=== PATIENT | female | born 1975 | race Caucasian/White ===

== ENCOUNTER 2016-11-22 00:51 | Emergency (ER) | payer OTHER ==
[~2016-11-22] VITALS: Ht 172.7 cm; Wt 104.3 kg
[~2016-11-22 00:51] MED LIST: AMOX500C PO; HYDR-971 PO; HYDR25CA PO; SULF1TAB24 PO
[2016-11-22 01:16] VITALS: BP 160/80
[2016-11-22] MEDS ORDERED: IBUP-1007 PO (01:43)
[2016-11-22] MEDS ORDERED: BACI28.43 TP (01:43)
--- NOTE | 2016-11-22 01:44 | PHYS DOC ---
Past Medical History Past Medical History: Arrhythmia Additional Past Medical Histor: pvc, bradycardia Past Surgical History: Appendectomy, Tonsillectomy, Other Additional Past Surgical Histo: ovarian cyst removal Alcohol Use: None Drug Use: None Adult General Chief Complaint Chief Complaint: ANIMAL BITE HPI HPI Patient is a 40 year old female who presents with complaint of pain to the right breast. Patient states that she suffered an accidental dog bite from one of her own dogs 2 weeks ago which caused an avulsion injury over the right breast. The patient has been applying dressings and antibiotic ointment to the affected area ever since. The patient was concerned because she has been experiencing more pain to this area. Patient denies any fever. Patient has had yellow clear drainage from the wound site. Patient states that her dog is up-to- date on all immunizations and that the patient is also up-to-date on tetanus. Due to concern for possible infection the patient came to the emergency department for evaluation. Review of Systems Review of Systems Constitutional: Denies fever or chills [] Eyes: Denies change in visual acuity, redness, or eye pain [] HENT: Denies nasal congestion or sore throat [] Respiratory: Denies cough or shortness of breath [] Cardiovascular: Denies chest pain or edema [] GI: Denies abdominal pain, nausea, vomiting, bloody stools or diarrhea [] : Denies dysuria or hematuria [] Musculoskeletal: Denies back pain or joint pain [] Integument: Right breast wound, pain to right breast [] Neurologic: Denies headache, focal weakness or sensory changes [] Allergies Allergies Allergies Coded Allergies Type Severity Reaction Last Updated Verified No Known Drug Allergies 12/11/13 No Physical Exam Physical Exam Constitutional: Alert, afebrile, appears in minimal discomfort. [] HENT: Normocephalic, atraumatic, bilateral external ears normal, oropharynx moist, no oral exudates, nose normal. [] Neck: Normal range of motion, no tenderness, supple, no stridor. [] Cardiovascular:Heart rate regular rhythm, no murmur [] Lungs & Thorax: Bilateral breath sounds clear to auscultation [] Abdomen: Bowel sounds normal, soft, no tenderness, no masses, no pulsatile masses. [] Skin: Warm, dry, 3 cm x 4 cm subacute avulsion to anterior right breast with no surrounding erythema or induration, no purulent drainage, granulation tissue present in wound bed. [] Back: No tenderness, no CVA tenderness. [] Extremities: No tenderness, no cyanosis, no clubbing, ROM intact, no edema. [] Neurologic: Alert and oriented X 3, normal motor function, normal sensory function, no focal deficits noted. [] Current Patient Data Vital Signs Vital Signs Date Time Temp Pulse Resp B/P Pulse Ox O2 Delivery O2 Flow Rate FiO2 11/22/16 01:16 98.9 103 16 160/80 99 Room Air 98.9 EKG EKG Not performed [] Radiology/Procedures Radiology/Procedures Not performed [] Course & Med Decision Making Course & Med Decision Making Pertinent Labs and Imaging studies reviewed. (See chart for details) The patient's wound appears to be healing well. There are mild inflammatory changes present but no signs of active infection at this time. Advised to continue on bacitracin ointment and routine wound care. Advised follow-up with primary doctor in the next 1-2 weeks and return to emergency department for any worsening symptoms. Patient voiced understanding and in agreement with treatment plan. Dragon Disclaimer Dragon Disclaimer This electronic medical record was generated, in whole or in part, using a voice recognition dictation system. Departure Departure Impression: Primary Impression: Animal bite Disposition: HOME, SELF-CARE Condition: GOOD Referrals: BLAIR CRAVEN MD (PCP) Patient Instructions: Wound Care, [id number] Additional Instructions: Follow-up with your primary doctor in 1-2 weeks. Return to the emergency department for any worsening symptoms. Scripts Ibuprofen 600 Mg [id number] Mg PO Q6HRS PRN INFLAMMATION #30 TAB Prov:LILLIANA VALLE MD 11/22/16 Bacitracin 30 Gm Oint...g.1 Desiree TP BID #30 GM Prov:LILLIANA VALLE MD 11/22/16 LILLIANA VALLE MD Nov 22, 2016 01:43
== END 2016-11-22 02:01 | disposition home or self-care (01) ==
LOC: ER 00:51
DX: S21.051A Open bite of right breast, initial encounter (principal); W54.0XXA Bitten by dog, initial encounter; Y93.89 Activity, other specified; Y92.89 Other specified places as the place of occurrence of the external cause; Y99.8 Other external cause status
CPT/HCPCS: 99283

== ENCOUNTER 2016-12-28 14:23 | Emergency (ER) | payer OTHER ==
[~2016-12-28] VITALS: Ht 170.2 cm; Wt 108.0 kg
[~2016-12-28 14:23] MED LIST changes: +BACI28.43 TP; +IBUP-1007 PO
[2016-12-28] MEDS ORDERED: KETOROLAC 15 MG/ML VIAL. IV ONE (16:00)
[2016-12-28] MEDS ORDERED: IV NORMAL SALINE 1000ML BAG 1,000 ML IV ONE (16:00)
--- NOTE | 2016-12-28 16:01 | ED.ADGEN ---
Past Medical History Past Medical History: Arrhythmia, Other Additional Past Medical Histor: pvc, bradycardia,Degenerative Disk Disorder, Broken tailbone Past Surgical History: Appendectomy, Tonsillectomy, Other Additional Past Surgical Histo: ovarian cyst removal&cyst removed from uterus. Additional Information: 2-3 packs a week. Alcohol Use: None Drug Use: None, Other Social History Narrative: "Gummy bear from [place] for my birthday.I get one every year." Adult General Chief Complaint Chief Complaint: OTHER COMPLAINTS HPI HPI Patient is a 41 year old woman, history of PVCs, bradycardia, degenerative disc disease, who presents emergency department with multiple complaints. Patient states over the past several weeks she's been experiencing episodes of back pain where she states "it feels like my spine is being ripped out". Patient states that this seems to be triggered by changes in the weather and by stress. She states that she's also had episodes of near-syncope and syncope, states that she will become lightheaded and fall down, although she states it may also be triggered by stress. She complains of some occasional numbness and tingling in her feet, denies any weakness, any headache, any nausea or vomiting , any palpitations, chest pain, shortness of breath. Patient states that she had an appointment to see her primary care provider about this intermittent pain and other symptoms, however she did cancel the appointment. She states that she has been using ibuprofen without relief, her last dose of ibuprofen was on Wednesday. Patient states the pain did return today, she came to the ED for evaluation. She states that "there is a lot going on right now and I am under a lot of stress". She denies any suicidal or homicidal ideations, any auditory or visual hallucinations, any drugs, alcohol or cigarettes. Denies any recent injuries, she has a history of a "tailbone" injury 3 years ago which she states still causes her pain, and denies any recent travel, history of DVT, PE, in herself, her grandmother had a DVT and advanced age, no history of sudden cardiac in family members. Review of Systems Review of Systems Constitutional: Denies fever or chills. [] Eyes: Denies change in visual acuity. [] HENT: Denies nasal congestion or sore throat. [] Respiratory: Denies cough or shortness of breath. [] Cardiovascular: Denies chest pain or edema. [] GI: Denies abdominal pain, nausea, vomiting, bloody stools or diarrhea. [] : Denies dysuria. [] Musculoskeletal: Lower back pain. Integument: Denies rash. [] Neurologic: Denies headache, focal weakness or sensory changes. [] Dizziness and syncope. Endocrine: Denies polyuria or polydipsia. [] Lymphatic: Denies swollen glands. [] Psychiatric: Denies depression or anxiety. [] Current Medications Current Medications Current Medications Medications (Trade) Dose Ordered Sig/Carine Start Time Stop Time Status Last Admin Dose Admin Ketorolac Tromethamine (Toradol) 10 mg 1X ONCE 12/28/16 16:00 12/28/16 16:01 DC 12/28/16 17:31 10 MG Sodium Chloride (Iv Sodium Chloride 0.9% 1000ml Bag) 1,000 ml @ 1,000 mls/hr 1X ONCE 12/28/16 16:00 12/28/16 16:59 DC 12/28/16 17:29 1,000 MLS/HR Allergies Allergies Allergies Coded Allergies Type Severity Reaction Last Updated Verified No Known Drug Allergies 12/11/13 No Physical Exam Physical Exam Constitutional: Well developed, well nourished, no acute distress, non-toxic appearance. [] HENT: Normocephalic, atraumatic, bilateral external ears normal, oropharynx moist, no oral exudates, nose normal. [] Eyes: PERRLA, EOMI, conjunctiva normal, no discharge. [] Neck: Normal range of motion, no tenderness, supple, no stridor. [] Cardiovascular:Heart rate regular rhythm, no murmur, S1, S2, rubs or gallops. [] Lungs & Thorax: Bilateral breath sounds clear to auscultation, no wheezing, rhonchi, rales. No chest wall crepitus or tenderness. [] Abdomen: Bowel sounds normal, soft, no tenderness, no rebound, rigidity, no guarding, no masses, no pulsatile masses. [] Skin: Warm, dry, no erythema, no rash. [] Back: No step-offs or deformities, patient complained of tenderness with some tissue tension in the paraspinal muscles in the bilateral lumbar region, no CVA tenderness. [] Extremities: No tenderness, no cyanosis, no clubbing, ROM intact, no edema. [] Neurologic: Alert and oriented X 3, normal motor function, normal sensory function, no focal deficits noted. [] Psychologic: Affect normal, judgement normal, mood normal. [] Current Patient Data Vital Signs Vital Signs Date Time Temp Pulse Resp B/P Pulse Ox O2 Delivery O2 Flow Rate FiO2 12/28/16 14:25 98.5 90 14 134/83 96 Room Air 98.5 Lab Values Laboratory Tests Test 12/28/16 15:00 12/28/16 16:35 Urine Color Yellow Urine Clarity Clear Urine pH 7.5 Urine Specific Confluence <=1.005 Urine Protein Negativemg/dL (NEG-TRACE) Urine Glucose (UA) Negativemg/dL (NEG) Urine Ketones (Stick) Negativemg/dL (NEG) Urine Blood Negative (NEG) Urine Nitrite Negative (NEG) Urine Bilirubin Negative (NEG) Urine Urobilinogen Dipstick 0.2mg/dL (0.2 mg/dL) Urine Leukocyte Esterase Negative (NEG) Urine RBC 0/HPF (0-2) Urine WBC Occ/HPF (0-4) Urine Squamous Epithelial Cells Occ/LPF Urine Bacteria Few/HPF (0-FEW) Urine Opiates Screen Neg (NEG) Urine Methadone Screen Neg (NEG) Urine Barbiturates Neg (NEG) Urine Phencyclidine Screen Neg (NEG) Urine Amphetamine/Methamphetamine Neg (NEG) Urine Benzodiazepines Screen Pos (NEG) Urine Cocaine Screen Neg (NEG) Urine Cannabinoids Screen Neg (NEG) Urine Ethyl Alcohol Neg (NEG) White Blood Count 9.6x10^3/uL (4.0-11.0) Red Blood Count 4.58x10^6/uL (3.50-5.40) Hemoglobin 13.8g/dL (12.0-15.5) Hematocrit 41.7% (36.0-47.0) Mean Corpuscular Volume 91fL (79-100) Mean Corpuscular Hemoglobin 30pg (25-35) Mean Corpuscular Hemoglobin Concent 33g/dL (31-37) Red Cell Distribution Width 15.8% (11.5-14.5) H Platelet Count 189x10^3/uL (140-400) Neutrophils (%) (Auto) 59% (31-73) Lymphocytes (%) (Auto) 31% (24-48) Monocytes (%) (Auto) 8% (0-9) Eosinophils (%) (Auto) 1% (0-3) Basophils (%) (Auto) 1% (0-3) Neutrophils # (Auto) 5.7x10^3uL (1.8-7.7) Lymphocytes # (Auto) 3.0x10^3/uL (1.0-4.8) Monocytes # (Auto) 0.7x10^3/uL (0.0-1.1) Eosinophils # (Auto) 0.1x10^3/uL (0.0-0.7) Basophils # (Auto) 0.1x10^3/uL (0.0-0.2) Sodium Level 137mmol/L (136-145) Potassium Level 3.9mmol/L (3.5-5.1) Chloride Level 102mmol/L (98-107) Carbon Dioxide Level 28mmol/L (21-32) Anion Gap 7 (6-14) Blood Urea Nitrogen 12mg/dL (7-20) Creatinine 0.7mg/dL (0.6-1.0) Estimated GFR (Cockcroft-Gault) 93.2 BUN/Creatinine Ratio 17 (6-20) Glucose Level 91mg/dL (70-99) Calcium Level 10.2mg/dL (8.5-10.1) H Total Bilirubin 0.3mg/dL (0.2-1.0) Aspartate Amino Transferase (AST) 20U/L (15-37) Alanine Aminotransferase (ALT) 35U/L (14-59) Alkaline Phosphatase 63U/L (46-116) Troponin I Quantitative < 0.017ng/mL (0.000-0.055) MV-Cpk-Q-Type Natriuretic Peptide 11pg/mL (0-124) Total Protein 8.1g/dL (6.4-8.2) Albumin 3.8g/dL (3.4-5.0) Albumin/Globulin Ratio 0.9 (1.0-1.7) L Laboratory Tests 12/28/16 16:35 Laboratory Tests 12/28/16 16:35 EKG EKG EC: Sinus rhythm, heart rate 2 beats minute, upright axis, QTC of 433, SC 120, QRS 100, mild baseline artifact, no ST elevations or depressions, no evidence of acute ST abnormalities. Radiology/Procedures Radiology/Procedures [] [facility] [address] [place] [address] IMAGING REPORT Signed PATIENT: JULIA PITT ACCOUNT: [id number] : 1975 LOCATION: ER AGE: 41 SEX: F EXAM STATUS: REG ER ORD. PHYSICIAN: MARIO SLAUGHTER DO REASON: dizziness PROCEDURE: PORTABLE CHEST 1V Indication dizziness. Fall. Suspect CVA. Protocol study. A single view of the chest was obtained. Comparison is made to an examination 07/24/2016. The heart, pulmonary vessels and mediastinum appear unremarkable. A focal infiltrate is not seen. Significant pleural fluid is not present and there is no pneumothorax. There has not been a significant change when compared to the previous exam. IMPRESSION: No acute or focal process. No significant change DICTATED and SIGNED BY: ZEESHAN BERNAL MD DATE: 12/28/16 1620 CC: BLAIR SCHMIDT MD; MARIO SLAUGHTER DO ~ Impressions: [facility] [address] [place] [address] IMAGING REPORT Signed PATIENT: JULIA PITT ACCOUNT: [id number] : 1975 LOCATION: ER AGE: 41 SEX: F EXAM STATUS: REG ER ORD. PHYSICIAN: MARIO SLAUGHTER DO REASON: LOWER BACK PAIN PROCEDURE: LUMBAR SPINE 2-3V Indication recent falls. Back pain. AP and lateral views of the lumbar spine were obtained as well as a coned view targeted to the lumbosacral junction. There are some minimal degenerative changes involving the facet joints at L4-5 and L5-S1. No acute bony finding is seen. Advanced degenerative changes are not seen IMPRESSION: No acute bony finding. DICTATED and SIGNED BY: ZEESHAN BERNAL MD DATE: 12/28/16 1421 CC: BLAIR SCHMIDT MD; MARIO SLAUGHTER DO ~ Course & Med Decision Making Course & Med Decision Making Pertinent Labs and Imaging studies reviewed. (See chart for details) Patient is complaining of low back pain currently in the emergency department, denies any urinary complaints as stated, has a normal neurologic examination, no cardiac or pulmonary risk factors or complaints, is ambulating without difficulty in the ED. She states that she is very "stressed out", agreeable to receiving laboratory studies and evaluation for her symptoms in the ED today, although we discussed the follow-up with her primary care provider as the symptoms have been ongoing is appropriate. Patient's laboratory studies and imaging not reveal any evidence of acutely concerning findings, she did receive Toradol for pain in the emergency department, was ambulating without difficulty , orthostatics are within normal limits. Discussed the possible role of stress as exerting factor for the patient's symptoms with patient. I did discuss findings as above with Dr. Schmidt, the patient's primary care provider, states she has not seen the patient in the office some time. She states that due to reports from other emergency department is that she does have concerns for possible "drug-seeking behavior". Department if the patient follow-up in the office with her for additional evaluation. Findings as above discussed with patient, plan for follow-up, discussed along with precautions, return instructions, patient was given Flexeril, naproxen, for treatment of musculoskeletal back pain, discharged home in stable condition with plan as above. Dragzulma Disclaimer Dragon Disclaimer This electronic medical record was generated, in whole or in part, using a voice recognition dictation system. Departure Impression: Primary Impression: Back pain Additional Impressions: Dizziness Syncope Disposition: HOME, SELF-CARE Condition: IMPROVED Scripts Naproxen 250 Mg [id number] Mg PO BID PRN PAIN #10 Prov:MARIO SLAUGHTER DO 12/28/16 Cyclobenzaprine Hcl 10 Mg [id number] Mg PO TID PRN PAIN #10 TAB Prov:MARIO SLAUGHTER DO 12/28/16 Problem Qualifiers MARIO SLAUGHTER DO December 28, 2016 16:01
--- NOTE | 2016-12-28 16:26 | RAD ---
Indication recent falls. Back pain. AP and lateral views of the lumbar spine were obtained as well as a coned view targeted to the lumbosacral junction. There are some minimal degenerative changes involving the facet joints at L4-5 and L5-S1. No acute bony finding is seen. Advanced degenerative changes are not seen IMPRESSION: No acute bony finding.
--- NOTE | 2016-12-28 16:28 | RAD ---
Indication dizziness. Fall. Suspect CVA. Protocol study. A single view of the chest was obtained. Comparison is made to an examination 07/24/2016. The heart, pulmonary vessels and mediastinum appear unremarkable. A focal infiltrate is not seen. Significant pleural fluid is not present and there is no pneumothorax. There has not been a significant change when compared to the previous exam. IMPRESSION: No acute or focal process. No significant change
[2016-12-28 16:40] LABS: BILIRUBIN,URINE NEGATIVE (NEG); GLUCOSE,URINE NEGATIVE (NEG); NITRITE,URINE NEGATIVE (NEG); PH,URINE 7.5; PROTEIN,URINE NEGATIVE (NEG-TRACE); UROBILINOGEN,URINE 0.2 mg/dL (0.2 mg/dL)
[2016-12-28 16:46] LABS: BARBITURATES NEG (NEG); BENZODIAZEPINES POS (NEG); CANNABINOIDS NEG (NEG); COCAINE NEG (NEG); METHADONE NEG (NEG); OPIATES NEG (NEG); PHENCYCLIDINE NEG (NEG)
[2016-12-28 16:47] LABS: BASO # 0.1 x10^3/uL (0.0-0.2); BASO % 1 % (0-3); EOS % 1 % (0-3); HEMATOCRIT 41.7 % (36.0-47.0); HEMOGLOBIN 13.8 g/dL (12.0-15.5); LYMPH % 31 % (24-48); MEAN CORPUSCULAR HEMOGLOBIN 30 pg (25-35); MEAN CORPUSCULAR HGB CONC 33 g/dL (31-37); MEAN CORPUSCULAR VOLUME 91 fL (79-100); MONO % 8 % (0-9); NEUT % 59 % (31-73); PLATELET COUNT 189 x10^3/uL (140-400); RED BLOOD COUNT 4.58 x10^6/uL (3.50-5.40); RED CELL DISTRIBUTION WIDTH 15.8 % (11.5-14.5); WHITE BLOOD COUNT 9.6 x10^3/uL (4.0-11.0)
[2016-12-28 17:03] LABS: CALCIUM 10.2 mg/dL (8.5-10.1); CREATININE 0.7 mg/dL (0.6-1.0); GFR 93.2; POTASSIUM 3.9 mmol/L (3.5-5.1)
[2016-12-28 17:06] LABS: BACTERIA,URINE FEW /HPF (0-FEW); RBC,URINE 0 /HPF (0-2); SQUAMOUS EPITHELIAL CELL,UR OCC /LPF; WBC,URINE OCC /HPF (0-4)
[2016-12-28 17:08] LABS: ALBUMIN 3.8 g/dL (3.4-5.0); ALBUMIN/GLOBULIN RATIO 0.9 (1.0-1.7); TOTAL BILIRUBIN 0.3 mg/dL (0.2-1.0); TOTAL PROTEIN 8.1 g/dL (6.4-8.2)
[2016-12-28] MEDS ORDERED: NAPR250T2 PO (18:21)
[2016-12-28] MEDS ORDERED: CYCL10TA2 PO (18:21)
[2016-12-28 19:08] VITALS: BP 116/63
--- NOTE | 2016-12-29 06:02 | EKG ---
[facility] [address] [place] [address] Test Date: 2016-12-28 Test Time: 16:42:56 Pat Name: JULIA PITT Department: Room: Gender: F Post Manager: : 1975 Requested By: MARIO SLAUGHTER Order Number: [id number] Reading MD: Irasema Mcwilliams Measurements Intervals [place] Rate: 82 P: 25 IL: 128 QRS: 67 QRSD: 100 T: 19 QT: 368 QTc: 433 Interpretive Statements SINUS RHYTHM NORMAL ECG RI6.01 Unconfirmed report Compared to ECG 12/11/2013 16:24:22 Prolonged QT interval no longer present Electronically Signed On 12-29-2016 12:11:58 CDT by Irasema Mcwilliams
== END 2016-12-28 19:08 | disposition home or self-care (01) ==
LOC: ER 14:23
DX: R55 Syncope and collapse (principal); R42 Dizziness and giddiness; M54.5 Low back pain; R20.0 Anesthesia of skin; I49.3 Ventricular premature depolarization; F17.200 Nicotine dependence, unspecified, uncomplicated
CPT/HCPCS: 36415; 71010; 72100; 80053; 80305; 80320; 81001; 83880; 84484; 85027; 93005; 96361; 96374; 99285; J1885; J7030; G0481